=== PATIENT | male | born 1980 | race Hispanic/Latino ===

== ENCOUNTER 2018-11-05 09:26 | Emergency (ER) | payer OTHER ==
[2018-11-05 09:29] VITALS: BMI 31.8
[2018-11-05 09:31] VITALS: TEMP 97.4; O2SAT 100
--- NOTE | 2018-11-05 10:28 | ED PDOC ---
HPI: General Adult Time Seen by Provider: 11/05/18 10:05 Chief Complaint (Nursing): Weakness/Neurological Deficit Chief Complaint (Provider): left sided facial drop and numbness History Per: Patient, Family () History/Exam Limitations: no limitations Onset/Duration Of Symptoms: Hrs Have you had recent travel within the past 21 days to any of the following countries: [place], [place], [place] or [place]?: No Current Symptoms Are (Timing): Still Present Severity: Mild Location: left side of face/forehead Similar Symptoms Previously: no Recent Trauma: no Additional Complaint(s): 38 yo M with no PMHx presents to the ED with left sided facial droop. Pt was on the train into [place] with his when she noticed the left side of his mouth was drooping. Pt states when he woke up, he felt the left side of his face was numb and he now feels like the left eyelids and left forehead feel "heavy". NO headache, weakness to extremities, N/V/D, or other symptoms. PMD: In [place], [place] Past Medical History Vital Signs: Last Vital Signs Temp 97.4 F L 11/05/18 09:29 Pulse 72 11/05/18 09:29 Resp 17 11/05/18 09:29 BP 151/87 H 11/05/18 09:29 Pulse Ox 100 11/05/18 09:29 YOHAN Report Viewed: Yes - Medical History PMH: No Chronic Diseases - Family History Family History: States: Unknown Family Hx - Home Medications Home Medications: Ambulatory Orders Medication Instructions Recorded Peg 400/Hypromellose/Glycerin [Eye 0.3 ml OP Q2 #1 bottle 11/05/18 Drop Tears 0.2%-0.2%-1% 15 ml] RX: Non-Formulary 1 ea TOP HS #1 ea 11/05/18 RX: predniSONE [predniSONE Tab] 80 mg PO DAILY 7 Days #28 tab 11/05/18 valACYclovir [Valtrex] 1 gm PO TID #21 tab 11/05/18 - Allergies Allergies/Adverse Reactions: Allergies Allergy/AdvReac Type Severity Reaction Status Date / Time No Known Allergies Allergy Verified 11/05/18 09:35 Review of Systems Constitutional: Negative for: Fever, Chills, Sweats Eyes: Positive for: Other (sensation of left eyelid heaviness). Negative for: Pain, Vision Change Cardiovascular: Negative for: Chest Pain, Palpitations Respiratory: Negative for: Cough, Shortness of Breath Gastrointestinal: Negative for: Nausea, Vomiting, Abdominal Pain Genitourinary Male: Negative for: Dysuria Musculoskeletal: Negative for: Neck Pain, Shoulder Pain, Arm Pain Skin: Negative for: Rash, Lesions Neurological: Negative for: Weakness, Numbness, Incoordination, Change in Speech, Confusion, Altered Mental Status, Headache, Dizziness Physical Exam - Reviewed Vital Signs Reviewed: Yes - Physical Exam Appears: Positive for: Well, Non-toxic, No Acute Distress (slight flattening of left nasolabial fold, decreased crease of left forehead compared to right. EOMI, CAITLYN) Head Exam: Positive for: ATRAUMATIC Skin: Positive for: Normal Color ENT: Positive for: Normal ENT Inspection Neck: Positive for: Normal Cardiovascular/Chest: Positive for: Regular Rate, Rhythm Respiratory: Positive for: Normal Breath Sounds Gastrointestinal/Abdominal: Positive for: Normal Exam Back: Positive for: Normal Inspection Extremity: Positive for: Normal ROM, Other (full and symmetric strenth in all extremities). Negative for: Tenderness, Swelling Neurologic/Psych: Positive for: Alert, Oriented, Gait (normal gain), Facial Droop (see head exam). 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 Rx for Valacyclovir, prednisone, eye patch, and eye drops. Follow up with PMD and box strapper in one week. Return parameters discussed with patient and his . Disposition - Clinical Impression Clinical Impression: Omalley's palsy - Disposition Disposition: Routine/Home Disposition Time: 10:30 Condition: STABLE Additional Instructions: Take medications as prescribed. Follow up with primary medical doctor and box strapper in one week. Return to the emergency department if you develop symptoms to any other part of the body or if symptoms worsen. Prescriptions: RX: Non-Formulary 1 ea TOP HS #1 ea Peg 400/Hypromellose/Glycerin [Eye Drop Tears 0.2%-0.2%-1% 15 ml] 0.3 ml OP Q2 #1 bottle RX: predniSONE [predniSONE Tab] 80 mg PO DAILY 7 Days #28 tab valACYclovir [Valtrex] 1 gm PO TID #21 tab Instructions: Omalley's Palsy (DC) Forms: [employer] ([place]), [facility] ED School/Work Excuse Print Language: [place]
[2018-11-05 10:29] VITALS: BP 132/91; PULSE 66; RESP 18
== END 2018-11-05 10:50 | disposition home or self-care (01) ==
LOC: H.ER 09:26
DX: G51.0 Bell's palsy (principal)